=== PATIENT | male | born 1960 ===

== ENCOUNTER → 2021-11-16 15:06 | Outpatient (BNVA) | payer SELFPAY | PROVIDERS: Visit Provider Internal Medicine | DX: Z02.79 Encounter for issue of other medical certificate (principal) ==

== ENCOUNTER → 2022-10-14 11:15 | Outpatient (BNVA) | payer SELFPAY | PROVIDERS: Visit Provider Internal Medicine ==

== ENCOUNTER → 2022-11-12 13:11 | Outpatient (BNVA) | payer SELFPAY | PROVIDERS: Visit Provider Physician Assistant | DX: Z02.79 Encounter for issue of other medical certificate (principal) ==